=== PATIENT | female | born 1990 | race African-American/Black ===

== ENCOUNTER 2019-04-14 19:12 | Emergency (ER) | payer OTHER ==
[~2019-04-14] VITALS: Ht 175.3 cm; Wt 89.4 kg
--- OUTSIDE RECORDS SUMMARY | 2019-04-14 19:16 | XMS REPORT | Summary of Care ---
Author Author [facility] Organization [facility] Address Unknown Phone Unavailable Care Team Providers Care Spring Coiler Hand Name Role Phone PCP Unavailable Reason for Referral * Consult, Test & Treat (Routine) Referred By Contact Referred To Contact Status Reason Specialty Diagnoses / Procedures Eloy Damon MD [address] [facility] [address] [place] [address] Juan Daniel Crawford Jr., MD [address] [address] Pending Consult, Test, and Physical Diagnoses Treat Medicine and Rupture of Rehab anterior cruciate ligament of right knee, initial encounter Low back pain, unspecified back pain laterality, unspecified chronicity, with sciatica presence unspecified/ NPP emailed. P rocedures [place] OFFICE OUTPATIENT NEW 45 MINUTES Reason for Visit * Reason Comments Knee Injury Patient arrives with an injury to her right knee. She says the injury happened in 04/2018. She says she had a MRI done in 12/2018 which states she had a ACL tear. She says she has been going to physical therapy. She comes in wearing a knee brace. * Consult, Test & Treat (Routine) Referred By Contact Referred To Contact Status Reason Specialty Diagnoses / Procedures Ralph Rao MD [facility] - Orthopedics & Sports Medicine [facility] [address] [place] [address] Eloy Damon MD [address] [facility] [address] [place] [phone] Authorization Diagnoses Not Needed Other spontaneous disruption of anterior cruciate ligament of right knee M23.611 (ICD-10-CM) - Other spontaneous disruption of anterior cruciate ligament of right knee P rocedures [place] OFFICE CONSULTATION NEW/ESTAB PATIENT 60 MIN Encounter Details Care Team Description Date Type Department Eloy Damon MD [address] [facility] [address] [place] [address] Knee Injury (Patient arrives with an injury to her right knee. She says the injury happened in 04/2018. She says she had a MRI done in 12/2018 which states she had a ACL tear. She says she has been going to physical therapy. She comes in wearing a knee brace.) 02/11/2019 Office Visit [facility] Orthopedic Surgery [address] [facility]. [address] [place] [address] Allergies No Known Allergiesdocumented as of this encounter (statuses as of 02/18/2019) Medications No known medicationsdocumented as of this encounter (statuses as of 02/18/2019) Active Problems No known active problemsdocumented as of this encounter (statuses as of 02/18/2019) Social History Date Tobacco Use Types Packs/Day Years Used Never Smoker Smokeless Tobacco: Never Used Drinks/Week oz/Week Comments Alcohol Use Yes Sex Assigned at Date Recorded Not on file Industry Job Start Date Occupation Not on file Not on file Not on file Travel End Travel History Travel Start No recent travel history available. documented as of this encounter Last Filed Vital Signs Reading Time Taken Comments Vital Sign - - Blood Pressure - - Pulse - - Temperature - - Respiratory Rate - - Oxygen Saturation - - Inhaled Oxygen Concentration 89.8 kg (198 lb) 02/11/2019 1:08 PM CDT Weight 175.3 cm (5' 9") 02/11/2019 1:08 PM CDT Height 29.24 02/11/2019 1:08 PM CDT Body Mass Index documented in this encounter Progress Notes * Eloy Damon MD - 02/11/2019 1:52 PM CDT NEW PATIENT/EST PT NEW PROBLEM Date of Service: 02/18/2019 7:42 PM Eloy Damon MD CHIEF COMPLAINT Chief Complaint Patient presents with Knee Injury Patient arrives with an injury to her right knee. She says the injury happened in 04/2018. She says she had a MRI done in 12/2018 which states she had a ACL te ar. She says she has been going to physical therapy. She comes in wearing a knee brace. HISTORY OF PRESENT ILLNESS Omaira Harman is a 28 y.o. female who is right hand dominant and comes in today f or a right knee injury. The pain began in April when her knee buckled and gave way. She has a sore, s wollen right knee. She got an MRI done in November but did not bring the images with her today. She has been going to PT and is using a knee brace. The pain is anterolateral and psoterolater and is exacerbated with extension. Decreases with rest and activity modification. Pt. denies pain at night or while sleeping. Pt. denies numbness or tingling. MEDICAL HISTORY Past Medical History: Diagnosis Date UNREMARKABLE Past Surgical History: Procedure Laterality Date HX APPENDECTOMY HX BUNIONECTOMY HX SECTION HX TUBAL LIGATION Family History Problem Relation Name Age of Onset No Known Problems Mother No Known Problems Father No Known Problems Sister No Known Problems Brother No Known Problems Maternal Aunt No Known Problems Maternal Uncle No Known Problems Paternal Aunt No Known Problems Paternal Uncle No Known Problems Maternal Grandmother No Known Problems Maternal Grandfather No Known Problems Paternal Grandmother No Known Problems Paternal Grandfather No Known Problems Other Arthritis Neg Hx Back Problems Neg Hx Bleeding Disorder Neg Hx Cancer Neg Hx Diabetes Neg Hx Gout Neg Hx Heart Disease Neg Hx High Blood Pressure Neg Hx HIV/AIDS Neg Hx Kidney Disease Neg Hx Lung Disease Neg Hx Osteoporosis (Thinning Bones) Neg Hx Seizures Neg Hx Stroke Neg Hx Social History Socioeconomic History Marital status: Unknown Spouse name: Not on file Number of children: Not on file Years of education: Not on file Highest education level: Not on file Occupational History Not on file Social Needs Financial resource strain: Not on file Food insecurity: Worry: Not on file Inability: Not on file Transportation needs: Medical: Not on file Non-medical: Not on file Tobacco Use Smoking status: Never Smoker Smokeless tobacco: Never Used Substance and Sexual Activity Alcohol use: Yes Drug use: Not on file Sexual activity: Not on file Lifestyle Physical activity: Days per week: Not on file Minutes per session: Not on file Stress: Not on file Relationships Social connections: Talks on phone: Not on file Gets together: Not on file Attends sikh service: Not on file Active member of club or organization: Not on file Attends meetings of clubs or organizations: Not on file Relationship status: Not on file Intimate partner violence: Fear of current or ex partner: Not on file Emotionally abused: Not on file Physically abused: Not on file Forced sexual activity: Not on file Other Topics Concerns: Not on file Social History Narrative Not on file No current outpatient medications on file. No Known Allergies Review of Systems Constitutional: Negative. Musculoskeletal: Positive for arthralgias. Skin: Negative. Neurological: Negative. PHYSICAL EXAM Height 5' 9" (1.753 m), weight 198 lb (89.8 kg). Body mass index is 29.24 kg/m . General Appearance: Oriented and Alert, No apparent distress HEENT: Head normocephalic Skin: Clear, no lesions, no erythema, no ecchymosis Vascular: No varicosities Neurologic: Normal motor and sensory function for both upper extremities Pulmonary: Breathing unlabored Lymphatic System: No lymphadenopathy Musculoskeletal: Right KNEE EXAM- Appearance Swollen Alignment - valgus Palpation Palpation: TTP over LJL Effusion: small Range of Motion Flexion: L 130 deg, R 125 deg, passively full but painful Extension: full Patellofemoral Crepitation: none Strength Intact SLR Special Tests Tre: positive- laterally Bennie: Positive Drawer: normal Varus: normal Valgus: normal Pivot Shift: normal Patellar Stability: stable Patellar Manipulation: no pain Patellar Compression: no pain Skin: Normal Neurovascular Status: Sensory integrity normal/intact throughout XRAYS TODAY: 4 views of the right knee are normal. OUTSIDE STUDIES OR REPORTS: MRI of the right knee describes a torn ACL but no other damage. ASSESSMENT AND PLAN Omaira Harman is a 28 y.o. female who injured her right knee in April of last year while playing basketball and suffered a torn ACL. She was not diagnosed un til November of this year when an MRI showed a torn ACL but no other damage. However , today on exam not only does she have an ACL tear but she appears to also have a LMT. She does not have her MRI films for me to review. I talked with the patient about her pathology and treatment options in detail. I have recommended that she get her MRI disc and come back to see me so I can look at her films personally. We will discuss further treatment options including s urgopal when I review her images. Rupture of anterior cruciate ligament of right knee, initial encounter [S83.854A ] I, Blaine Hyde, am scribing for, and in the presence of, Dr. Justice Damon. I, Dr. Justice Damon, personally performed the services described in this docume ntation, as scribed by Blaine Hyde in my presence, and it is both accurate and complete. Eloy Damon MD documented in this encounter Plan of Treatment Care Team Description Date Type Specialty Juan Daniel Crawford Jr., MD [facility] [address] [address] 03/13/2019 Office Visit Physical Medicine and Rehab Order Schedule Name Type Priority Associated Diagnoses Ordered: 02/11/2019 ORT - XR KNEE RIGHT 4V [place] Charge Routine Right knee pain, (CHARGE ONLY) unspecified chronicity Order Schedule Name Type Priority Associated Diagnoses Ordered: 02/11/2019 AMB REF TO PHYSICAL MED Outpatient Routine Rupture of anterior [facility] Referral cruciate ligament of right knee, initial encounter Health Maintenance Due Date Last Done Comments TETANUS SHOT (ADULT) 11/24/2006 BMI FOLLOW UP PLAN 11/24/2009 HIV SCREENING 11/24/2009 CERVICAL CANCER SCREENING 11/24/2012 3 YEAR FOLLOW UP FLU VACCINE > 6 MONTHS 01/09/2019 documented as of this encounter Results * XR KNEE RIGHT AP, LAT, BOTH OBLIQUES (02/11/2019 1:43 PM CDT) Specimen Narrative Performed At For result, please reference physician's note on the corresponding date. documented in this encounter Visit Diagnoses Diagnosis Rupture of anterior cruciate ligament of right knee, initial encounter - Primary Right knee pain, unspecified chronicity documented in this encounter Insurance Type Payer Benefit Subscriber ID Effective Phone Address Plan / Dates Group Medicaid [facility] - xxxxxxxxx 2018-P [address] [facility] [id number] [facility] PLAN [id number] documented as of this encounter
--- OUTSIDE RECORDS SUMMARY | 2019-04-14 19:16 | XMS REPORT | Summary of Care ---
Author Author [facility] Organization [facility] Address Unknown Phone Unavailable Care Team Providers Care Marker Machine Attendant Name Role Phone Shreya Guevara PCP Reason for Visit * Reason Comments Follow Up Patient arrives with her MRI CD for Dr Damon to review and go over with patient. Encounter Details Care Team Description Date Type Department Eloy Damon MD [address] [facility] [address] [place] [address] Follow Up (Patient arrives with her MRI CD for Dr Damon to review and go over with patient. ) 03/25/2019 Office Visit [facility] Orthopedic Surgery [address] [facility] [address] [place] [address] Allergies No Known Allergiesdocumented as of this encounter (statuses as of 04/06/2019) Medications No known medicationsdocumented as of this encounter (statuses as of 04/06/2019) Active Problems No known active problemsdocumented as of this encounter (statuses as of 04/06/2019) Social History Date Tobacco Use Types Packs/Day [...] Inhaled Oxygen Concentration 89.8 kg (198 lb) 03/25/2019 11:20 AM CDT Weight 175.3 cm (5' 9") 03/25/2019 11:20 AM CDT Height 29.24 03/25/2019 11:20 AM CDT Body Mass Index documented in this encounter Progress Notes * Eloy Damon MD - 03/25/2019 11:17 AM CDT Follow Up Date of Service: 04/06/2019 5:09 PM Eloy Damon MD CHIEF COMPLAINT Chief Complaint Patient presents with Follow Up Patient arrives with her MRI CD for Dr Damon to review and go over with tye ent. HISTORY OF PRESENT ILLNESS Follow up to review MRI CD. MEDICAL HISTORY Past Medical History: Diagnosis Date [...] Hx Social History Socioeconomic History Marital status: Single Spouse name: Not on file Number of [...] file Gets together: Not on file Attends synagogue service: Not on file Active member of [...] Known Allergies Review of Systems Constitutional: Negative. Respiratory: Negative. Cardiovascular: Negative. Musculoskeletal: Positive for arthralgias. Skin: Negative. [...] Status: Sensory integrity normal/intact throughout XRAYS TODAY: None today OUTSIDE STUDIES OR REPORTS: MRI from 10/11/[address] [facility] brought in on disc for me to review . Good quality study. Shows large effusion and torn ACL, but no medial or latera l meniscus tear. No significant cartilage damage. No bone bruising consistent wi th a recent pivoting episode. ASSESSMENT AND PLAN Omaira Harman is a 28 y.o. female whose MRI does show a torn ACL. No me niscus damage but her MRI was performed was back in October and the last visit I fel t she could possibly have a lateral meniscus tear. I talked with the patient about her pathology and treatment options in detail. A fter that discussion she decided to move forward with a R knee arthroscopy with ACL reconstruction using patellar tendon autograft and meniscus work as indicate d. The nature of the surgery, the risks involved, the rehabilitation required, and the expected outcomes were discussed with the patient in a detailed and thorough manner. Over 25 minutes of face to face time were spent with the patient, mostly educating her about her pathology, counseling her about her surgery and recove ry, and answering her questions. She acknowledged understanding all of the above and desires to proceed and we will see her back on the day of surgery. Rupture of anterior cruciate ligament of right knee, initial encounter [N63.517A ] I, Neris Rodriguez, am scribing for, and in the presence of, Dr. Justice gray. I, Dr. Justice Damon, personally performed the services described in this docume ntation, as scribed by Neris Rodriguez in my presence, and it is both accura te and complete. Eloy Damon MD documented in this encounter Plan of Treatment Care Team Description Date Type Specialty Eloy Damon MD [address] [facility] [address] [place] [address] [phone] 04/11/2019 Appointment Orthopedic Surgery Eloy Damon MD [address] [facility] [address] [place] [address] [phone] 04/17/2019 Office Visit Orthopedic Surgery Juan Daniel Crawford Jr., MD [address] [facility] [address] [address] [phone] 04/17/2019 Office Visit Physical Medicine and Rehab Health Maintenance Due Date Last Done Comments TETANUS SHOT (ADULT) 11/24/2006 BMI FOLLOW UP PLAN 11/24/2009 HIV SCREENING 11/24/2009 CERVICAL CANCER SCREENING 11/24/2012 3 YEAR FOLLOW UP FLU VACCINE > 6 MONTHS 01/09/2019 documented as of this encounter Results Not on filedocumented in this encounter Visit Diagnoses Diagnosis Rupture of anterior cruciate ligament of right knee, initial encounter - Primary documented in this encounter Insurance Type Payer Benefit Subscriber ID Effective Phone Address Plan / Dates Group Medicaid [facility] - xxxxxxxxx 2018-P [address] [place] [id number] [facility] PLAN [phone] Medicaid [facility] KIDS xxxxxxxxx 2018-1 [address] [place] [id number] [facility] PLAN [id number] documented as of this encounter
--- OUTSIDE RECORDS SUMMARY | 2019-04-14 19:16 | XMS REPORT ---
Author Author [facility] Address Unknown Phone Unavailable Care Team Providers Care Team Leader Surgery Name Role Phone SPENCERVIVIAN CARRERA AHSAN Unavailable Unavailable Payers Payer Name Policy Type Policy Number Effective Date Expiration Date Problems This patient has no known problems. Allergies, Adverse Reactions, Alerts Allergy Name Allergy Type Status Severity Reaction(s) Onset Date Inactive Date Treating Clinician Comments No Known Allergies DA Active U 2018-04-14 00:00:00 No Known Allergies DA Active U 2018-04-01 00:00:00 No Known Allergies DA Active U 2015-01-08 00:00:00 Medications This patient has no known medications. Results Test Description Test Time Test Comments Text Results Atomic Results Result Comments SCREEN, URINE 2019-04-11 06:18:00 TEST URINE (BEAKER) (test qagb=235) Negative [id number] 06:16:00* Test Item Value Reference Range Comments HEMOGLOBIN (BEAKER) (test udaw=663) 11.8 GM/DL 11.2-15.7
--- NOTE | 2019-04-14 19:36 | NUR ---
PT TOOK HOME PAIN MEDICATION, HYDROCODONE/ACETAMINOPHEN 7.5MG- 325 MG X2; DR. LIGIA CORDON'D PT TO TAKE HOME MEDICATION. NAD NOTED.
== END 2019-04-14 21:48 | disposition home or self-care (01) ==
LOC: ER 19:12
DX: G89.18 Other acute postprocedural pain (principal); M79.661 Pain in right lower leg; M79.89 Other specified soft tissue disorders; F32.9 Major depressive disorder, single episode, unspecified
CPT/HCPCS: 93971; 99283